=== PATIENT | female | born 1960 | race Caucasian/White ===

== ENCOUNTER 2016-10-18 23:31 | Emergency (ER) | payer MEDICAID ==
[2016-10-19 01:10] VITALS: BP 207/100
--- NOTE | 2016-10-19 01:34 | EDM.PDOC ---
[id number] Time Seen by Provider: 10/19/16 01:15 Source of Information: Reports: Patient History Limitations: Reports: No Limitations - History of Present Illness INITIAL COMMENTS - FREE TEXT/NARRATIVE: 56-year-old female who has had intense right second incisor pain of the maxilla for the past 2 days since flossing between her teeth and displacing some filling. She has an appointment on which is 2 days from now. No fever or swelling, but her pain is persistent unless she throws cold water over the area. Ibuprofen is not helping Onset: Sudden (2 days ago) Severity: Moderate Associated Symptoms: Reports: No Other Symptoms right tooth Pain Score (Numeric/FACES): 9 - Related Data Allergies Allergy/AdvReac Type Severity Reaction Status Date / Time acetaminophen Allergy Vomiting Verified 10/19/16 01:14 [From Tylenol-Codeine #3] codeine Allergy Vomiting Verified 10/19/16 01:14 [From Tylenol-Codeine #3] Home Meds: Home Meds Lisinopril/Hydrochlorothiazide [Lisinopril-Hctz 10-12.5 mg Tab] 1 each PO DAILY 04/24/13 [History] Past Medical History HEENT History: Reports: Impaired Vision Cardiovascular History: Reports: Hypertension 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: Musculoskeletal History: Reports: Fracture, Other (See Below) Other Musculoskeletal History: fracture right small toe - Infectious Disease History Infectious Disease History: Reports: Chicken Pox - Past Surgical History Female Surgical History: Reports: Section Social & Family History - Tobacco Use Smoking Status *Q: Current Every Day Smoker Years of Tobacco use: 30 Packs/Tins Daily: 0.5 Used Tobacco, but Quit: No Second Hand Smoke Exposure: Yes - Caffeine Use Caffeine Use: Reports: Coffee, Tea - Alcohol Use Days Per Week of Alcohol Use: 0 - Recreational Drug Use Recreational Drug Use: No ED ROS ENT - Review of Systems Review Of Systems: See Below Constitutional: Denies: Fever, Chills HEENT: Reports: Dental Pain Respiratory: Denies: Shortness of Breath GI/Abdominal: Reports: Other (Hasn't been able to eat anything). Denies: Nausea , Vomiting Skin: Reports: No Symptoms Neurological: Denies: Headache ED EXAM, ENT - Physical Exam Exam: See Below Exam Limited By: No Limitations General Appearance: Alert, Anxious Mouth/Throat: Dental Tenderness (The second incisor of the right maxillary is extremely tender to percussion, there is no surrounding gingival erythema or swelling) Respiratory/Chest: No Respiratory Distress Neurological: Alert, Oriented Psychiatric: Anxious Course - Vital Signs Last Recorded V/S: Last Vital Signs Temp 95.0 F L 10/19/16 01:09 Pulse 67 10/19/16 01:09 Resp 18 10/19/16 01:09 BP 207/100 H 10/19/16 01:09 Pulse Ox 98 10/19/16 01:09 - Re-Assessments/Exams Free Text/Narrative Re-Assessment/Exam: 10/19/16 01:32 Patient was supplied with 10 days of penicillin to take 4 times daily, encouraged to continue with full dose ibuprofen and was given 10 hydrocodone to use over the next 24 hours. She can return if not improving. Departure - Departure Time of Disposition: 01:43 Disposition: Home, Self-Care 01 Condition: Good Clinical Impression: Pain, dental - Discharge Information Instructions: [facility] Referrals: Cathleen Hector NP [Primary Care Provider] - Forms: ED Department Discharge Care Plan Goals: Take full dose ibuprofen, 800 mg 3 times a day. Add penicillin as directed and hydrocodone as needed. See if you can get your dentist to get you in sooner if needed.
== END 2016-10-19 01:43 | disposition home or self-care (01) ==
LOC: JP.ED 23:31
DX: K08.89 Other specified disorders of teeth and supporting structures (principal); F17.210 Nicotine dependence, cigarettes, uncomplicated; I10 Essential (primary) hypertension; Z79.899 Other long term (current) drug therapy; Z88.5 Allergy status to narcotic agent; Z88.6 Allergy status to analgesic agent
CPT/HCPCS: 99283

== ENCOUNTER 2016-10-19 10:52 | Emergency (ER) | payer MEDICAID ==
[2016-10-19] MEDS ORDERED: Lisinopril 5 MG Tab PO ONE (12:08)
--- NOTE | 2016-10-19 12:09 | EDM.PDOC ---
[id number] BP, TOOTHACHE Time Seen by Provider: 10/19/16 12:09 Source of Information: Reports: Patient History Limitations: Reports: No Limitations - History of Present Illness INITIAL COMMENTS - FREE TEXT/NARRATIVE: pt was at the dentist and her bp was very high and she was quite uncomfortable. She was sent here because of the bp. Onset: Gradual Duration: Day(s): Location: Reports: Other ( dental pain. 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: Musculoskeletal History: Reports: Fracture, Other (See Below) Other Musculoskeletal History: fracture right small toe - Infectious Disease History Infectious Disease History: Reports: Chicken Pox - Past Surgical History Female Surgical History: Reports: Section Social & Family History - Tobacco Use Smoking Status *Q: Current Every Day Smoker Years of Tobacco use: 30 Packs/Tins Daily: 0.5 Used Tobacco, but Quit: No Second Hand Smoke Exposure: Yes - Caffeine Use Caffeine Use: Reports: Coffee, Tea - Alcohol Use Days Per Week of Alcohol Use: 0 - Recreational Drug Use Recreational Drug Use: No ED ROS GENERAL - Review of Systems Review Of Systems: See Below Constitutional: Reports: No Symptoms HEENT: Reports: Dental Pain, Other ( Pt has a molar in the rt upper which is very painful. ) Respiratory: Reports: No Symptoms Cardiovascular: Reports: Other ( bp elevated. It was over 200 systolic at the dentist. ) Endocrine: Reports: No Symptoms GI/Abdominal: Reports: No Symptoms : Reports: No Symptoms ED EXAM, DIZZINESS - Physical Exam Exam: See Below Text/Narrative:: Pt arrived with pain in the rt upper molar area. She was at the dental office today and her bp was very elevated and they were nervous to give her any treatment. Exam Limited By: No Limitations General Appearance: Alert, Anxious, Moderate Distress Ears: Normal TMs Nose: Normal Inspection Throat/Mouth: Other ( she has a carious tooth on the rt upper posterior this is very tender. ) Head Exam: Atraumatic Respiratory/Chest: No Respiratory Distress Course - Vital Signs Last Recorded V/S: Last Vital Signs Temp 35.8 C 10/19/16 11:14 Pulse 115 H 10/19/16 11:14 Resp 14 10/19/16 11:14 BP 154/91 H 10/19/16 13:41 Pulse Ox 93 L 10/19/16 11:14 - Orders/Labs/Meds Meds: Medications Discontinued Medications Generic Name Dose Route Start Last Admin Trade Name Freq PRN Reason Stop Dose Admin Ketorolac Tromethamine 60 mg 10/19/16 12:49 10/19/16 13:06 Toradol IM 10/19/16 12:50 60 mg ONETIME ONE Administration Lidocaine HCl 2 ml 10/19/16 14:20 10/19/16 14:29 Xylocaine 4% Top Soln MUCMEM 10/19/16 14:21 2 ml ONETIME ONE Administration Lisinopril 5 mg 10/19/16 12:08 10/19/16 12:16 Prinivil PO 10/19/16 12:09 5 mg ONETIME ONE Administration - Re-Assessments/Exams Free Text/Narrative Re-Assessment/Exam: 10/19/16 14:25 pt was given an extra 5 mg of lisinopril because of the elvated bp. She was given torodol 60mg im and did get relief with that. The dentist switched her to augmentin from plain penicillin and gave her a motrin 600mg tid. 10/20/16 07:30 Departure - Departure Time of Disposition: 14:28 Disposition: Home, Self-Care 01 Condition: Fair Clinical Impression: Infected tooth, Hypertension - Discharge Information Instructions: Dental Abscess, [id number], Hypertension Referrals: Cathleen Hector NP [Primary Care Provider] - Forms: ED Department Discharge Care Plan Goals: Increase lisinopril with to 1 tab in am and 1/2 tab in the pm check back with the dentist, lidocaine 4% apply packs to the area, start augmentin that she was given at the dental office.
[2016-10-19] MEDS ORDERED: Ketorolac 60 MG/2 ML SDV IM ONE (12:49)
[2016-10-19 13:41] VITALS: BP 154/91
[2016-10-19] MEDS ORDERED: Lidocaine 4% Top Soln 50 ML Bottle MUCMEM ONE (14:20)
== END 2016-10-19 14:38 | disposition home or self-care (01) ==
LOC: JP.ED 10:52
DX: I10 Essential (primary) hypertension (principal); K04.7 Periapical abscess without sinus; K02.9 Dental caries, unspecified; F17.210 Nicotine dependence, cigarettes, uncomplicated; Z79.899 Other long term (current) drug therapy; Z88.5 Allergy status to narcotic agent; Z88.6 Allergy status to analgesic agent
CPT/HCPCS: 96372; 99283; A9270; J1885

== ENCOUNTER 2023-04-25 10:05 | Emergency (ER) | payer MEDICAID ==
[2023-04-25 10:44] VITALS: BP 156/90; PULSE 98
== END 2023-04-25 11:45 | disposition home or self-care (01) ==
LOC: JP.ED 10:05
DX: N93.9 Abnormal uterine and vaginal bleeding, unspecified (principal); I10 Essential (primary) hypertension; Z88.6 Allergy status to analgesic agent; Z88.5 Allergy status to narcotic agent; Z79.899 Other long term (current) drug therapy
CPT/HCPCS: 99283

== ENCOUNTER 2023-06-14 10:13 | Emergency (ER) | payer MEDICAID ==
[2023-06-14 11:51] LABS: CORONAVIRUS COVID-19 NAA NEGATIVE (NEGATIVE); INFLUENZA A NAA POSITIVE (NEGATIVE); INFLUENZA B NAA NEGATIVE (NEGATIVE); RESPIRATORY SYNCYTIAL VIR NAA NEGATIVE (NEGATIVE)
[2023-06-14 12:27] VITALS: BP 123/79; PULSE 94
== END 2023-06-14 12:25 | disposition home or self-care (01) ==
LOC: JP.ED 10:13
DX: J10.1 Influenza due to other identified influenza virus with other respiratory manifestations (principal); I10 Essential (primary) hypertension; F17.210 Nicotine dependence, cigarettes, uncomplicated; Z88.8 Allergy status to other drugs, medicaments and biological substances; Z79.899 Other long term (current) drug therapy; Z86.16 Personal history of COVID-19
CPT/HCPCS: 0241U; 99283